=== PATIENT | male | born 1950 | race Caucasian/White ===

== ENCOUNTER → 2016-09-06 | Outpatient (CLI) | payer OTHER ==
[~2016-09-06] VITALS: Ht 177.8 cm; Wt 117.9 kg
[~2016-09-06] MED LIST: ACETAMINOPHEN325 M1 PO; ALEVE220 MG PO; APAP/CODEINE ELI5 M1 OR; CIPROFLOXACIN500 M1 PO; EXCEDRIN CAPLE1 EACH PO; FLAGYL500 MG PO; HYDROCODONE-APA1 TA1 PO; LEVAQUIN 500 M500 M2 PO; NOHOMEMEDICATIONS; ZPAK PO
--- NOTE | ~2016-09-06 | HPC ---
[facility] [place] [address] PAIN MANAGEMENT CONSULTATION Name: LINCOLN MEDINA Room #: REG Selin Corey.#: [id number] Admission: 09/06/16 Attend Phys: Nelson Mills MD Discharge: Date of : 52 Report #: [id number] THIS REPORT FOR: //name// CC: Nelson Mckee MD DATE OF SERVICE: 09/06/2016 FOLLOWUP COMPLAINT: Continued pain, radiating down into the back, legs with numbness, weakness, tenderness, and numbness down into the right foot. FOLLOWUP HISTORY: The patient is a 66-year-old gentleman, who has been referred to the pain clinic for evaluation. The patient has low back pain with numbness and weakness, radiating down into his left and right leg, as well as numbness in his right foot. He has been walking with an antalgic gait because of the pain and discomfort. He has tried stretching exercises, has used nonsteroidal anti-inflammatory medications and has tried hydrocodone. Still his pain is rated as a 10/10. CURRENT MEDICATIONS: 1. Hydrocodone 10/325 q. 6 hours p.r.n. pain. 2. Viagra 100 mg daily. SOCIAL HISTORY: He continues to smoke 1-pack of cigarettes per day and has smoked for 40 years. PHYSICAL EXAMINATION: Blood pressure is 140/77, pulse 79, respiratory rate 20, and room air saturation is 90%. The patient walks with an antalgic gait, complains of pain and discomfort down into his legs, posterior portion of the L5-S1 distribution bilaterally. There is numbness in his right foot. IMPRESSION: 1. Symptomatic lumbar radiculopathy. 2. Displacement of lumbar intervertebral disk with radiculopathy. 3. Transsacral spondylosis with radiculopathy. 4. Chronic intractable pain. RECOMMENDATIONS: We discussed treatment options with the patient. Risks and benefits of an epidural steroid injection were discussed. Complications could include, but are not limited to bleeding, increased muscle soreness, headache, worsening of pain. The patient elects to proceed. PROCEDURE NOTE: The patient was placed on the fluoroscopy table in a prone position. His back was sterilely prepped with a Betadine solution. A total of 5 mL was infiltrated into the L5-S1 area. An 18-gauge [place] [address] PAIN MANAGEMENT CONSULTATION Name: LINCOLN MEDINA Room #: REG NAVEEN Solares#: [id number] Admission: 09/06/16 Attend Phys: Nelson Mills MD Discharge: Date of : 51 Report #: [id number] advanced into the appropriate place after the epidural space was entered. A total of 80 mg Depo-Medrol, 40 mg triamcinolone and 2 mL of 0.25% bupivacaine was injected. The patient tolerated the procedure well. Fluoroscopy time was 8 seconds. The patient will follow up in the near future. We would like to thank you for letting us participate in his care. We hope he continues to improve. <ELECTRONICALLY SIGNED> By: Nelson Mills MD 09/08/16 0853 [id number] Nelson Mills MD /nt
[2016-09-06 09:15] VITALS: BP 140/77
== END ==
LOC: PAIN 07:37
DX: M47.27 Other spondylosis with radiculopathy, lumbosacral region (principal); G89.29 Other chronic pain; F17.210 Nicotine dependence, cigarettes, uncomplicated

== ENCOUNTER → 2016-09-20 | Outpatient (CLI) | payer OTHER ==
[~2016-09-20] VITALS: Ht 177.8 cm; Wt 117.2 kg
[~2016-09-20] MED LIST changes: +NEURONTIN600 MG PO
--- NOTE | ~2016-09-20 | HPC ---
[facility] [place] [address] PAIN MANAGEMENT CONSULTATION Name: LINCOLN MEDINA Room #: REG CLSelin Corey.#: [id number] Admission: 09/20/16 Attend Phys: Nelson Mills MD Discharge: Date of : 51 Report #: [id number] THIS REPORT FOR: //name// CC: Nelson Mckee MD DATE OF SERVICE: 09/20/2016 FOLLOWUP COMPLAINT: The pain is still present. FOLLOWUP HISTORY: The patient is a 66-year-old gentleman who has been seen in the pain clinic because of lumbar radiculopathy. He has symptomatic lumbar radiculopathy. He underwent an epidural steroid injection. He feels that his pain has not improved significantly. He is scheduling surgery in the near future. He does not feel that another epidural steroid injection would prove significantly beneficial at this juncture and would like to await surgery for the definitive treatment. PHYSICAL EXAMINATION: Blood pressure 158/102, pulse 73, respiratory rate 18, room air saturation 96%. The patient's height 5 feet 10 inches, weight 117 kilograms, BMI is 37. The patient continues to have pain and discomfort in the lower portion of his back with pain radiating down in the right L5-S1 distribution. IMPRESSION: 1. Symptomatic lumbar radiculopathy. 2. Displacement of lumbar intervertebral disk with radiculopathy. 3. Transsacral spondylosis with radiculopathy. 4. Chronic intractable pain. RECOMMENDATIONS: The patient will continue with his current medical regimen of gabapentin 600 mg 1 p.o. b.i.d. He will follow up with his surgeon. The patient states that he will probably undergo surgery here in the next week or two. We would like to thank you for letting us participate in his care. We hope he continues to improve. By: 1448 2150 Nelson Mills MD /nt
[2016-09-20 08:32] VITALS: BP 158/102
== END | disposition home or self-care (01) ==
LOC: PAIN 06:55
DX: M51.16 Intervertebral disc disorders with radiculopathy, lumbar region (principal); M47.28 Other spondylosis with radiculopathy, sacral and sacrococcygeal region; G89.29 Other chronic pain; F17.210 Nicotine dependence, cigarettes, uncomplicated

== ENCOUNTER → 2019-10-01 | Outpatient (CLI) | payer OTHER | LOC: HYPER 08:28 | DX: L84 Corns and callosities (principal); R60.0 Localized edema; L30.9 Dermatitis, unspecified; L82.1 Other seborrheic keratosis; B19.10 Unspecified viral hepatitis B without hepatic coma; D75.1 Secondary polycythemia; E66.01 Morbid (severe) obesity due to excess calories; I87.2 Venous insufficiency (chronic) (peripheral); J44.9 Chronic obstructive pulmonary disease, unspecified; M25.473 Effusion, unspecified ankle; F10.10 Alcohol abuse, uncomplicated; F17.290 Nicotine dependence, other tobacco product, uncomplicated; Z68.41 Body mass index [BMI] 40.0-44.9, adult; Z96.60 Presence of unspecified orthopedic joint implant; Z79.82 Long term (current) use of aspirin; Z20.828 Contact with and (suspected) exposure to other viral communicable diseases ==

== ENCOUNTER → 2019-10-06 | Outpatient (CLI) | payer OTHER | LOC: SJCVCIMAG 09:23 | DX: I87.2 Venous insufficiency (chronic) (peripheral) (principal) ==

== ENCOUNTER → 2019-10-08 | Outpatient (CLI) | payer OTHER | LOC: HYPER 08:35 | DX: L30.9 Dermatitis, unspecified (principal); L82.1 Other seborrheic keratosis; R60.0 Localized edema; I87.2 Venous insufficiency (chronic) (peripheral); I89.0 Lymphedema, not elsewhere classified; D75.1 Secondary polycythemia; B19.10 Unspecified viral hepatitis B without hepatic coma; J44.9 Chronic obstructive pulmonary disease, unspecified; M25.473 Effusion, unspecified ankle; F17.210 Nicotine dependence, cigarettes, uncomplicated; E66.9 Obesity, unspecified; H35.00 Unspecified background retinopathy; Z20.828 Contact with and (suspected) exposure to other viral communicable diseases; Z96.60 Presence of unspecified orthopedic joint implant ==

== ENCOUNTER 2020-12-18 16:00 | Emergency (ER) | payer OTHER ==
[~2020-12-18] VITALS: Ht 180.3 cm; Wt 124.7 kg
[2020-12-18] MEDS ORDERED: FUROSEMIDE 40 M40 M1 PO (16:15)
[2020-12-18] MEDS ORDERED: DILTIAZEM 24HR240 M1 PO (16:16)
[2020-12-18] MEDS ORDERED: CEPHALEXIN500 MG PO (18:05)
[2020-12-18 18:10] VITALS: BP 136/80
== END 2020-12-18 18:10 | disposition home or self-care (01) ==
LOC: ER 16:00
DX: S81.821A Laceration with foreign body, right lower leg, initial encounter (principal); Z98.890 Other specified postprocedural states; Z79.891 Long term (current) use of opiate analgesic; Z79.899 Other long term (current) drug therapy; Z87.891 Personal history of nicotine dependence; W22.8XXA Striking against or struck by other objects, initial encounter; Y93.55 Activity, bike riding; Y92.89 Other specified places as the place of occurrence of the external cause; Y99.8 Other external cause status

== ENCOUNTER 2021-05-03 11:41 | Inpatient (IN) | payer OTHER ==
[~2021-05-03] VITALS: Ht 177.8 cm; Wt 109.8 kg
[2021-05-03] VITALS (33 sets, daily range): BP systolic 71–115; BP diastolic 44–80
--- NOTE | ~2021-05-03 | EMS ---
[place] [address] EMS Patient Care Report Name: LINCOLN MEDINA Room #: 242-P ADM IN M.R.#: [id number] Admission: 05/03/21 Attend Phys: Skyla Bradfodr Discharge: Date of : 51 Report #: [id number] THIS REPORT FOR: //name// Report Transmitted: 05/05/2021 13:13 EMS Care Summary [place], [place]/[facility] Incident [id number] @ 05/03/2021 11:04 Incident Location [address] [place] [address] Patient LINCOLN MEDINA Male, 70 Years 1950 Patient Address [address] [place] [address] Patient History Congestive Heart Failure (CHF), Patient Allergies No known allergies, Patient Medications Spironolactone, Trazodone, Tamsulosin, Metoprolol, Bumetanide, Chief Complaint CHF, SOA Disposition Transported No Lights/[place], Upgraded Dispatch Reason Cardiac Arrest/ Transported To [facility] Narrative 70 y/o male CHF SOA Upon arrival there were neighbors and Fire personnel standing outside the residence trying to gain access to the residence. The [place] [address] EMS Patient Care Report Name: LINCOLN MEDINA Room #: 242-P ADM IN M.R.#: [id number] Admission: 05/03/21 Attend Phys: Skyla Bradford Discharge: Date of : 52 Report #: [id number] be opened by the upon her arrival. The family [place] Jennifer had to be put away. The pt found lying supine on the floor of the residence in the hallway. The pt was blue and breathing. He was awake, conscious A&O x 3 with a GCS of 14. Pt has the year wrong and believes it to be 2000. The pt breathing was labored, lung sounds have rales bilaterally, and strong reg radial pulse. The pt is suppose to be on O2 at home 4 lpm and was not wearing his O2. The pt was sat up and assisted to a standing position. The pt was sat on the bed of the closest room to put some underwear on the pt. The pt was placed on O2 at 15 lpm via NRB. The pt had a syncopal episode in the bedroom, he regained consciousness and was assisted to the cot, placed in a position of comfort, secured to the cot and loaded into the ambulance. VS established, ECG is ST, [address] with no ST elevation, a CPAP was placed on the pt at 10 lpm at a pressure of 10. 0.4 mg of sublingual nitro was administered to the pt. The pt was transported with lights and sirens. Despite the pt's low O2 sat he was answering questions appropriately and made the statement that is was his time and I responded no it wasn't. The pt's cot came lose from the yan while in motion to [place]. IV access was delayed due to the cot not latching and moving about the cabin. I had to hold the pt in placed till we arrived at [place]. Report was given after we stopped at the [place] bay it was brief and to the point. EMS extended to the appropriate length to get it out of the ambulance. Pt was taken to bed 2 and lifted onto the bed of the ED. EMS gave report and returned to service. Initial Vitals @11:23P: 106,SpO2: 81, @11:28P: 115,SpO2: 82, @11:28P: 113,BP: 122/83,SpO2: 87, @11:33P: 113,BP: 105/61,CO: 0,SpO2: 81, @11:28P: 114,CO: 3,SpO2: 93, @11:25P: 117,R: 20,Pain: 0/10,GCS: 15,SpO2: 67,CA Suspected: false @11:25P: 118,R: 20,BP: 126/77,Pain: 0/10,GCS: 15,SpO2: 90,Revised Trauma: 12, @11:24P: 128,R: 20,Pain: 0/10,GCS: 15,SpO2: 71,CA Suspected: false Assessments @12:02MENTAL:Person Oriented,Event Oriented,Place Oriented,Time Oriented,SKIN:Cyanotic,Pale,HEENT:Eyes: Left Pupil: 6-mm,Eyes: Right Pupil: 3-mm,Head/Face: No Abnormalities,Neck/Airway: No Abnormalities,LUNG SOUNDS:General: No Abnormalities,ABDOMEN:General: No Abnormalities,PELVIS//GI:No Abnormalities,EXTREMITIES:Capillary Refill: Right Upper: < 2 Sec,Capillary Refill: Left Upper: < 2 Sec,Left Arm: No Abnormalities,Right Arm: No Abnormalities,Left Leg: No Abnormalities,Right Leg: No Abnormalities,PULSE:Radial: 2+ Normal,NEURO:No Abnormalities, Impression Congestive heart failure (CHF) [facility] [address] [address] EMS Patient Care Report Name: LINCOLN MEDINA Room #: 242-P ADM IN M.R.#: [id number] Admission: 05/03/21 Attend Phys: John Paulraheem Calin Sanchez Discharge: Date of : 52 Report #: [id number] Procedures @11:25 12-Lead ECG @11:28 Nitrostat - 0.4 Milligrams (mg) - Sublingual Response: Worse @11:08 ALS Assessment Response: WorseSucceeded @11:24 3-Lead ECG Response: WorseSucceeded @11:24 CPAP FlowRate: 10 Response: WorseSucceeded @11:09 Oxygen FlowRate: 15 Device: Non Re-breather Mask (NRB) Response: UnchangedSucceeded Timeline 11:03,Call Received 11:03,Dispatch Notified 11:04,Dispatched 11:05,En Route 11:07,On Scene 11:08,At Patient 11:08,ALS Assessment,Response: WorseSucceeded, 11:09,Oxygen FlowRate: 15 Device: Non Re-breather Mask (NRB) Response: UnchangedSucceeded, 11:23,BP: / M,PULSE: 106,RR: R,SPO2: 81 Ox,ETCO2: ,BG: ,PAIN: ,GCS: , 11:24,3-Lead ECG,Response: WorseSucceeded, 11:24,CPAP FlowRate: 10 Response: WorseSucceeded, 11:24,BP: / M,PULSE: 128,RR: 20 R,SPO2: 71 Ox,ETCO2: ,BG: ,PAIN: 0,GCS: 15, 11:25,12-Lead ECG, 11:25,BP: / M,PULSE: 117,RR: 20 R,SPO2: 67 Ox,ETCO2: ,BG: ,PAIN: 0,GCS: 15, 11:25,BP: 126/77 M,PULSE: 118,RR: 20 R,SPO2: 90 Ox,ETCO2: ,BG: ,PAIN: 0,GCS: 15, 11:28,Nitrostat - 0.4 Milligrams (mg) - Sublingual,Response: Worse 11:28,BP: / M,PULSE: 114,RR: R,SPO2: 93 Ox,ETCO2: ,BG: ,PAIN: ,GCS: , 11:28,BP: 122/83 M,PULSE: 113,RR: R,SPO2: 87 Ox,ETCO2: ,BG: ,PAIN: ,GCS: , 11:28,BP: / M,PULSE: 115,RR: R,SPO2: 82 Ox,ETCO2: ,BG: ,PAIN: ,GCS: , 11:29,Depart Scene 11:33,BP: 105/61 M,PULSE: 113,RR: R,SPO2: 81 Ox,ETCO2: ,BG: ,PAIN: ,GCS: , 11:33,At Destination 12:06,Call Closed Disclaimer v1.1 Copyright 2020 [employer] This EMS Care Summary contains data elements from the applicable legal record (which may be displayed differently). It is designed to provide pertinent information for the following purposes: continuity of care, clinical quality, and state data reporting. The complete legal record is available to ED staff and administrators of the receiving hospital in [employer] Patient Tracker. All data is provided "as is."
--- NOTE | ~2021-05-03 | EMS ---
[address] [address] EMS Patient Care Report Name: LINCOLN MEDINA Room #: 242-P ADM IN M.R.#: [id number] Admission: 05/03/21 Attend Phys: Skyla Bradford Discharge: Date of : 52 Report #: [id number] THIS REPORT FOR: //name// Report Transmitted: 05/04/2021 10:06 EMS Care Summary [place], [place]/[facility] Incident [id number] @ 05/03/2021 11:04 Incident Location [address] [place] [address] Patient LINCOLN MEDINA Male, 70 Years 1950 Patient Address [address] [place] [address] Patient History Congestive Heart Failure (CHF), Patient Allergies No known allergies, Patient Medications Tamsulosin, Metoprolol, Bumetanide, Trazodone, Spironolactone, Chief Complaint CHF, SOA Disposition Transported No Lights/[place], Upgraded Dispatch Reason Cardiac Arrest/ Transported To [facility] Narrative 70 y/o male CHF SOA Upon arrival there were neighbors and Fire personnel standing outside the residence trying to gain access to the residence. [place] [address] EMS Patient Care Report Name: LINCOLN MEDINA Room #: 242-P ADM IN M.R.#: [id number] Admission: 05/03/21 Attend Phys: Skyla Bradford Discharge: Date of : 52 Report #: [id number] be opened by the upon her arrival. The family Swedish Jennifer had to be put away. The pt found lying supine on the floor of the residence in the hallway. The pt was blue and breathing. He was awake, conscious A&O x 3 with a GCS of 14. Pt has the year wrong and believes it to be 2000. The pt breathing was labored, lung sounds have rales bilaterally, and strong reg radial pulse. The pt is suppose to be on O2 at home 4 lpm and was not wearing his O2. The pt was sat up and assisted to a standing position. The pt was sat on the bed of the closest room to put some underwear on the pt. The pt was placed on O2 at 15 lpm via NRB. The pt had a syncopal episode in the bedroom, he regained consciousness and was assisted to the cot, placed in a position of comfort, secured to the cot and loaded into the ambulance. VS established, ECG is ST, [address] with no ST elevation, a CPAP was placed on the pt at 10 lpm at a pressure of 10. 0.4 mg of sublingual nitro was administered to the pt. The pt was transported with lights and sirens. Despite the pt's low O2 sat he was answering questions appropriately and made the statement that is was his time and I responded no it wasn't. The pt's cot came lose from the yan while in motion to [place]. IV access was delayed due to the cot not latching and moving about the cabin. I had to hold the pt in placed till we arrived at [place]. Report was given after we stopped at the [place] bay it was brief and to the point. EMS extended to the appropriate length to get it out of the ambulance. Pt was taken to bed 2 and lifted onto the bed of the ED. EMS gave report and returned to service. Initial Vitals @11:23P: 106,SpO2: 81, @11:28P: 115,SpO2: 82, @11:28P: 113,BP: 122/83,SpO2: 87, @11:33P: 113,BP: 105/61,CO: 0,SpO2: 81, @11:28P: 114,CO: 3,SpO2: 93, @11:25P: 117,R: 20,Pain: 0/10,GCS: 15,SpO2: 67,RI Suspected: false @11:25P: 118,R: 20,BP: 126/77,Pain: 0/10,GCS: 15,SpO2: 90,Revised Trauma: 12, @11:24P: 128,R: 20,Pain: 0/10,GCS: 15,SpO2: 71,RI Suspected: false Assessments @12:02MENTAL:Time Oriented,Place Oriented,Event Oriented,Person Oriented,SKIN:Pale,Cyanotic,HEENT:Eyes: Right Pupil: 3-mm,Eyes: Left Pupil: 6-mm,Head/Face: No Abnormalities,Neck/Airway: No Abnormalities,LUNG SOUNDS:General: No Abnormalities,ABDOMEN:General: No Abnormalities,PELVIS//GI:No Abnormalities,EXTREMITIES:Capillary Refill: Right Upper: < 2 Sec,Capillary Refill: Left Upper: < 2 Sec,Left Arm: No Abnormalities,Right Arm: No Abnormalities,Left Leg: No Abnormalities,Right Leg: No Abnormalities,PULSE:Radial: 2+ Normal,NEURO:No Abnormalities, Impression Congestive heart failure (CHF) [facility] [address] [place] [address] EMS Patient Care Report Name: LINCOLN MEDINA Room #: 242-P ADM IN M.R.#: [id number] Admission: 05/03/21 Attend Phys: John Paulraheem Calin Sanchez Discharge: Date of : 52 Report #: [id number] Procedures @11:25 12-Lead ECG @11:28 Nitrostat - 0.4 Milligrams (mg) - Sublingual Response: Worse @11:08 ALS Assessment Response: WorseSucceeded @11:24 3-Lead ECG Response: WorseSucceeded @11:24 CPAP FlowRate: 10 Response: WorseSucceeded @11:09 Oxygen FlowRate: 15 Device: Non Re-breather Mask (NRB) Response: UnchangedSucceeded Timeline 11:03,Call Received 11:03,Dispatch Notified 11:04,Dispatched 11:05,En Route 11:07,On Scene 11:08,At Patient 11:08,ALS Assessment,Response: WorseSucceeded, 11:09,Oxygen FlowRate: 15 Device: Non Re-breather Mask (NRB) Response: UnchangedSucceeded, 11:23,BP: / M,PULSE: 106,RR: R,SPO2: 81 Ox,ETCO2: ,BG: ,PAIN: ,GCS: , 11:24,3-Lead ECG,Response: WorseSucceeded, 11:24,CPAP FlowRate: 10 Response: WorseSucceeded, 11:24,BP: / M,PULSE: 128,RR: 20 R,SPO2: 71 Ox,ETCO2: ,BG: ,PAIN: 0,GCS: 15, 11:25,12-Lead ECG, 11:25,BP: / M,PULSE: 117,RR: 20 R,SPO2: 67 Ox,ETCO2: ,BG: ,PAIN: 0,GCS: 15, 11:25,BP: 126/77 M,PULSE: 118,RR: 20 R,SPO2: 90 Ox,ETCO2: ,BG: ,PAIN: 0,GCS: 15, 11:28,Nitrostat - 0.4 Milligrams (mg) - Sublingual,Response: Worse 11:28,BP: / M,PULSE: 114,RR: R,SPO2: 93 Ox,ETCO2: ,BG: ,PAIN: ,GCS: , 11:28,BP: 122/83 M,PULSE: 113,RR: R,SPO2: 87 Ox,ETCO2: ,BG: ,PAIN: ,GCS: , 11:28,BP: / M,PULSE: 115,RR: R,SPO2: 82 Ox,ETCO2: ,BG: ,PAIN: ,GCS: , 11:29,Depart Scene 11:33,BP: 105/61 M,PULSE: 113,RR: R,SPO2: 81 Ox,ETCO2: ,BG: ,PAIN: ,GCS: , 11:33,At Destination 12:06,Call Closed Disclaimer v1.1 Copyright 2020 [employer] This EMS Care Summary contains data elements from the applicable legal record (which may be displayed differently). It is designed to provide pertinent information for the following purposes: continuity of care, clinical quality, and state data reporting. The complete legal record is available to ED staff and administrators of the receiving hospital in [employer]'s Patient Tracker. All data is provided "as is."
[~2021-05-03 11:41] MED LIST changes: +CEPHALEXIN500 MG PO; +DILTIAZEM 24HR240 M1 PO; +FUROSEMIDE 40 M40 M1 PO
--- NOTE | 2021-05-03 11:51 | NUR ---
PATIENT INTUBED AT BEDSIDE BY ERP: 200 ETOMIDATE, 100 SUCC @ 1148, 7.5 ET TUBE, 23@LIP @ 1149
[2021-05-03 12:17] LABS: ABSOLUTE NEUTROPHILS 5.7 thou/uL (1.4-8.2); BASOPHILS 0.3 % (0.0-2.0); HEMATOCRIT 56.6 % (42.0-52.0); HEMOGLOBIN 17.9 gm/dL (14.0-18.0); LYMPHOCYTES 7.5 % (24.0-44.0); MCH 28.8 pg (26.0-34.0); MCHC 31.6 g/dL (28.0-37.0); MCV 91.1 fL (80.0-100.0); MONOCYTES 8.6 % (1.0-8.0); PLATELET COUNT 181 thou/uL (150-400); POLYS 83.6 % (36.0-66.0); RBC 6.21 mil/uL (4.50-6.00); RDW 14.3 % (10.5-14.5); WBC 6.8 thou/uL (4.0-11.0)
--- NOTE | 2021-05-03 12:19 | NUR ---
PT VENTILATOR SETTINGS: TIDAL VOLUME: 500 RESPIRATORY RATE: 16 PEEP: 6 FIO2: 100% LUNG SOUNDS HEAR EQUALL IN BOTH CROCKER. PT HAS SIGNIGICANT CONGESTION AND THEIR IS HEAVY SPUTUM EXTRACTED FROM ET TUBE WITH SUCTION.
[2021-05-03 12:20] LABS: CALCIUM 8.1 mg/dL (8.5-10.1); CREATININE 2.3 mg/dL (0.7-1.3); POTASSIUM 4.8 mmol/L (3.5-5.1)
[2021-05-03 12:30] LABS: ALBUMIN 3.5 g/dL (3.4-5.0); TOTAL BILIRUBIN 0.8 mg/dL (0.2-1.0); TOTAL PROTEIN 7.1 g/dL (6.4-8.2)
[2021-05-03 12:55] LABS: BE(vivo) -1.3 mmol/L (-2 to +3); HCO3 31.5 mmol/L (22.0-26.0); PO2 70.3 mmHg (80.0-100.0); sO2 88.3 % (92.0-98.0)
[2021-05-03 12:56] LABS: PCO2 89.7 mmHg (35.0-45.0); pH 7.164 (7.360-7.450)
--- NOTE | 2021-05-03 13:34 | NUR ---
PT LEVOPHED AND PROPOFOL BOTH STOPPED AT THIS TIME PER ADMITTING PHYSICIANS ORDER.
--- NOTE | 2021-05-03 14:02 | EKG ---
[place] [address] [facility] [address] ELECTROCARDIOGRAM REPORT Name: EVELYNEPRISCILLALINCOLN ANDRÉS Room #: 170-2 ADM IN M.R.#: [id number] Admission: 05/03/21 Attend Phys: Skyla Bradford Discharge: Date of : 51 Report #: [id number] [facility] ED Test Date: 2021-05-03 Test Time: 11:40:35 Pat Name: LINCOLN MEDINA Department: Room: 170 Gender: M Distance [employer] Faculty Liaison: NMD : 1950 Requested By: Lg Hernandez Order Number: [id number] MD: Gerber Monahan Measurements Intervals [place] Rate: 110 P: 64 ME: 170 QRS: 123 QRSD: 94 T: 48 QT: 335 QTc: 454 Interpretive Statements Sinus tachycardia Probable left atrial enlargement Left posterior fascicular block No previous ECG available for comparison Electronically Signed On 05-03-2021 14:01:42 BROACH OPERATOR by Gerber Monahan [email or web address] <ELECTRONICALLY SIGNED> By: Gerber Monahan MD, [facility] 05/03/21 1401 1140 1140 Gerber Monahan MD, FACC /EPI
--- NOTE | 2021-05-03 15:03 | NUR ---
A #5F TRIPLE LUMEN CENTRAL LINE WAS PLACED PER HOSPITAL POLICY AFTER A BEDSIDE TIMEOUT WAS COMPLETED. THE LINE WAS TRIMMED TO 25CM AND ADVANCED TO 6CM EXTERNAL. A STAT CHEST XRAY WAS ORDERED TO CONFIRM LINE WAS IN ADEQUATE POSITION FOR USE
--- NOTE | 2021-05-03 17:00 | NUR ---
1630- Patient arrived to ICU with assist of ED staff and RT. He was quickly placed on ventilator. Admission assessment performed and noted. His blood pressure was hypotensive, levophed infusing. Levophed titrated to desired goal. He was restless, propofol titrated. No family present upon arrival to ICU.
[2021-05-03 20:59] LABS: BE(vivo) 2.8 mmol/L (-2 to +3); HCO3 30.7 mmol/L (22.0-26.0); PCO2 58.6 mmHg (35.0-45.0); PO2 92.3 mmHg (80.0-100.0); pH 7.337 (7.360-7.450); sO2 96.5 % (92.0-98.0)
[2021-05-04] VITALS (40 sets, daily range): BP systolic 92–135; BP diastolic 61–86
[2021-05-04 04:03] LABS: HEMOGLOBIN 16.6 gm/dL (14.0-18.0); MCH 28.3 pg (26.0-34.0); MCHC 31.3 g/dL (28.0-37.0); MCV 90.4 fL (80.0-100.0); RBC 5.86 mil/uL (4.50-6.00); RDW 14.4 % (10.5-14.5); WBC 7.4 thou/uL (4.0-11.0)
[2021-05-04 04:09] LABS: CALCIUM 7.9 mg/dL (8.5-10.1); POTASSIUM 4.5 mmol/L (3.5-5.1)
[2021-05-04 04:15] LABS: ALBUMIN 2.7 g/dL (3.4-5.0); MAGNESIUM 1.8 mg/dL (1.8-2.4); TOTAL BILIRUBIN 0.6 mg/dL (0.2-1.0); TOTAL PROTEIN 5.7 g/dL (6.4-8.2)
[2021-05-04 04:19] LABS: CREATININE 1.3 mg/dL (0.7-1.3)
[2021-05-04 05:22] LABS: BE(vivo) 5.5 mmol/L (-2 to +3); HCO3 32.9 mmol/L (22.0-26.0); PCO2 57.9 mmHg (35.0-45.0); PO2 86.3 mmHg (80.0-100.0); pH 7.373 (7.360-7.450); sO2 96.1 % (92.0-98.0)
--- NOTE | 2021-05-04 11:08 | 2DMMODE ---
[facility] [place] [address] 2 D/M-MODE ECHOCARDIOGRAM Name: LINCOLN MEDINA Room #: 242-P ADM IN M.R.#: [id number] Admission: 05/03/21 Attend Phys: Skyla Bradford Discharge: Date of : 52 Report #: [id number] THIS REPORT FOR: cc: Herberth Morrison,Gerber Ashraf MD [facility] ~ APPROVED REPORT Study performed: 05/04/2021 09:51:45 EXAM: Comprehensive 2D, Doppler, and color-flow Echocardiogram Patient Location: ICU Room #: 242 Status: routine BSA: 2.33 HR: 70 bpm BP: 104/71 mmHg Rhythm: NSR Other Information Study Quality: Good Indications Congestive Heart Failure Respiratory failure 2D Dimensions RVDd: 52.99 mm IVSd: 10.35 (7-11mm) LVOT Diam: 21.97 (18-24mm) LVDd: 51.19 mm PWd: 11.16 (7-11mm) Ascending Ao: 33.71 (22-36mm) LVDs: 36.59 (25-40mm) Left Atrium: 37.04 (27-40mm) Aortic Root: 31.69 mm IVC: 26.00 mm Volumes Left Atrial Volume (Systole) Single Plane 4CH: 44.70 mL Single Plane 2CH: 41.35 mL LA ESV Index: 23.00 mL/m2 Aortic Valve AoV Peak Eron.: 1.14 m/s AO Peak Gr.: 5.24 mmHg LVOT Max P.03 mmHg LVOT Max V: 0.87 m/s [facility] [address] [email or web address] [address] 2 D/M-MODE ECHOCARDIOGRAM Name: LINCOLN MEDINA Room #: 242-P [facility] IN ..#: [id number] Admission: 05/03/21 Attend Phys: Skyla Layton Jul Discharge: Date of : 52 Report #: [id number] MASOOD Vmax: 2.88 cm2 Mitral Valve E/A Ratio: 0.8 MV Decel. Time: 240.60 ms MV E Max Eron.: 0.56 m/s MV A Eron.: 0.74 m/s MV PHT: 69.77 ms IVRT: 138.41 ms Pulmonary Valve PV Peak Eron.: 0.73 m/s PV Peak Gr.: 2.11 mmHg Pulmonary Vein P Vein S: 0.27 m/s P Vein A: 0.24 m/s P Vein D: 0.26 m/s P Vein A Dur.: 120.0 msec P Vein S/D Ratio: 1.04 Tricuspid Valve TR Peak Eron.: 3.77 m/s TR Peak Gr.: 56.93 mmHg PA Pressure: 72.00 mmHg Left Ventricle The left ventricle is normal size. There is normal LV segmental wall motion. There is normal left ventricular wall thickness. The left ventricular systolic function is normal. The left ventricular ejection fraction is within the normal range. LVEF is >55%. Grade I - abnormal relaxation pattern. Right Ventricle Right ventricle is dilated. Right ventricle is hypokinetic. Atria The left atrium size is normal. Right atrium is dilated. Aortic Valve The aortic valve is normal in structure. No aortic regurgitation is present. There is no aortic valvular stenosis. Mitral Valve The mitral valve is normal in structure. There is no mitral valve regurgitation noted. No evidence of mitral valve stenosis. Tricuspid Valve [facility] [email or web address] [address] 2 D/M-MODE ECHOCARDIOGRAM Name: LINCOLN MEDINA Room #: 242-P [facility] IN M.R.#: [id number] Admission: 05/03/21 Attend Phys: Skyla Dewey Discharge: Date of : 52 Report #: [id number] The tricuspid valve is normal in structure. There is moderate tricuspid regurgitation. There is severe pulmonary hypertension. 72 mmHg Pulmonic Valve The pulmonary valve is normal in structure. There is no pulmonic valvular regurgitation. Great Vessels The aortic root is normal in size. The inferior vena cava is dilated with no inspiratory collapse. Pericardium There is no pericardial effusion. <Conclusion> Normal left ventricle size/wall thickness Ejection fraction 55% Grade 1 diastolic dysfunction Right ventricle mildly dilated/hypokinetic Normal atrial size Normal aortic/mitral valve structure and function Moderate tricuspid valve insufficiency Severe pulmonary hypertension Pulmonary systolic pressure estimated 72 mmHg Normal aortic root size No pericardial effusion <ELECTRONICALLY SIGNED> By: Gerber Monahan MD, FACC 05/04/211107 07 07 Gerber Monahan MD, FACC /INF
[2021-05-04 12:25] LABS: URINE BILIRUBIN NEGATIVE (Negative); URINE BLOOD NEGATIVE (Negative); URINE CLARITY CLOUDY; URINE COLOR YELLOW; URINE GLUCOSE-RANDOM* NEGATIVE (Negative); URINE KETONES NEGATIVE (Negative); URINE LEUKOCYTES-REFLEX NEGATIVE (Negative); URINE NITRITE-REFLEX NEGATIVE (Negative); URINE PROTEIN (DIPSTICK) NEGATIVE (Negative); URINE SPECIFIC GRAVITY 1.025 (1.005-1.035); URINE UROBILINOGEN 0.2 E.U./dl (0.2-1.0)
--- NOTE | 2021-05-05 11:03 | NUR ---
ASSUMED CARE OF PT AT 0700 SPOKE TO PTS SISTER AT 0830 AND UPDATED HER PER POC AT BEDSIDE AT 1030, ANSWERED ALL HER QUESTIONS PER POC
--- NOTE | 2021-05-05 15:44 | NUR ---
70 year old male remains intubated for respiratory arrest, Acute hypoxic hypoxia, hypercapnic respiratory failure, obesity, AMINA, COPD, Hx of CHF, sever pulmonary hypertension, UTI and cirrhosis. At present patient remains intubated at 70% FI02. Patient's sister updated by nursing and is at bedside. No anticipated CM needs at this time. CM to follow when moving closer to discharge needs being identified.
[2021-05-05 18:00] VITALS: BP 121/70
[2021-05-05 19:00] VITALS: BP 118/68
[2021-05-05 20:00] VITALS: BP 129/73
[2021-05-05 21:00] VITALS: BP 130/73
[2021-05-05 22:00] VITALS: BP 127/73
[2021-05-05 23:00] VITALS: BP 132/74
[2021-05-06] VITALS (39 sets, daily range): BP systolic 110–151; BP diastolic 63–87
[2021-05-06 02:54] LABS: ABSOLUTE NEUTROPHILS 8.6 thou/uL (1.4-8.2); BASOPHILS 0.4 % (0.0-2.0); HEMATOCRIT 53.3 % (42.0-52.0); LYMPHOCYTES 6.5 % (24.0-44.0); MCH 28.4 pg (26.0-34.0); MONOCYTES 5.2 % (1.0-8.0); PLATELET COUNT 172 thou/uL (150-400); POLYS 87.9 % (36.0-66.0); RBC 5.99 mil/uL (4.50-6.00); RDW 14.2 % (10.5-14.5); WBC 9.8 thou/uL (4.0-11.0)
[2021-05-06 03:21] LABS: ALBUMIN 2.8 g/dL (3.4-5.0); CALCIUM 8.5 mg/dL (8.5-10.1); CREATININE 0.9 mg/dL (0.7-1.3); PHOSPHORUS 4.6 mg/dL (2.5-4.9); POTASSIUM 4.4 mmol/L (3.5-5.1); TOTAL BILIRUBIN 0.6 mg/dL (0.2-1.0); TOTAL PROTEIN 5.9 g/dL (6.4-8.2)
[2021-05-06 05:20] LABS: BE(vivo) 8.6 mmol/L (-2 to +3); HCO3 36.6 mmol/L (22.0-26.0); PCO2 61.4 mmHg (35.0-45.0); pH 7.393 (7.360-7.450); sO2 94.6 % (92.0-98.0)
--- NOTE | 2021-05-06 15:50 | NUR ---
PT , AMI, AT BEDSIDE THIS MORNING FROM 11AM-1PM. DISCUSSED POC WITH HER, WEANED SEDATION TO ATTEMPT CPAP TRIAL AND EXPLAINED PROCESS. APPEARS ANXIOUS AND VOICES HER WORRY FOR HIS HEALTH. ADVISED THAT THIS RN WOULD CALL HER LATER THIS AFTERNOON WITH UPDATES.
[2021-05-07] VITALS (47 sets, daily range): BP systolic 118–155; BP diastolic 68–84
[2021-05-07 02:52] LABS: CALCIUM 8.5 mg/dL (8.5-10.1); PHOSPHORUS 4.7 mg/dL (2.6-4.7); POTASSIUM 4.5 mmol/L (3.5-5.1)
--- NOTE | 2021-05-07 02:56 | NUR ---
PATIENT WAS CALM AND PEACEFUL THROUGHOUT THE SHIFT. PATIENT DOES RESPON TO TOUCH. PATIENT IS MILDLY SEDATED WITH PRECEDEX AND PROPOFOL. REMAINS INTUBATED AT THIS TIME ABD TOLERATING WELL. TUBE FEEDING IN PLACE TO OG TUBE AT SET RATE OF 40ML/HR. NO S/S OF DISTRESS NOTED AT THIS TIME. MEDICATIONS GIVEN THROUGH OG SITE. PATIENT SINUS STUART ON THE MONITOR. ALL VITAL SIGNS STABLE THROUGH THIS POINT OF SHIFT. WILL CONTINUE TO MONITOR FOR CANGES IN PATIENT STATUS.
--- NOTE | 2021-05-07 06:16 | NUR ---
0545 MOMENTS AFTER RT CLEANED PT OG SITE PATIENT O2 BEGAN TO SLOWLY DROP. PT DROPPED LOW 86%. NO LEAK IDENTIFIED IN TUBING. PERFORMED IN LINE SUCTION WHICH INITIALLY IMPROVED 02 SAT TO 88%. INCREASED FIO2 TO 100% IN ORDER TO HELP PATIENT BREATHE AND ATTEMPT TO SUCTION AGAIN. NOTED SEVERAL THICK SECRETIONS WHEN PERFORMING DEEP SUCTION. PT 02 SAT BACK UP TO 97%. RT WILL KEEP PT ON 100% UNTIL AM ROUNDS TO ALLOW PATIENT TO REGROUP.
[2021-05-08] VITALS (40 sets, daily range): BP systolic 117–161; BP diastolic 62–85
--- NOTE | 2021-05-08 03:50 | NUR ---
05/07/21: 1999: Pt had temp of 102.4 F. Cortney Rosales NP, notified and cultures obtained of urine, sputum and blood (both line and peripheral). Pt blankets removed and fan turned on medium. 05/08/21: 0100: Pt temp up to 102.9 F. Pt given Tylenol 650 mg per OG tube. Recheck of temp at 0145 102.1 F
[2021-05-08 06:17] LABS: HEMATOCRIT 59.1 % (42.0-52.0); HEMOGLOBIN 18.4 gm/dL (14.0-18.0); MCH 27.9 pg (26.0-34.0); MCHC 31.1 g/dL (28.0-37.0); MCV 89.8 fL (80.0-100.0); RBC 6.59 mil/uL (4.50-6.00); RDW 14.6 % (10.5-14.5); WBC 9.2 thou/uL (4.0-11.0)
[2021-05-08 06:25] LABS: ALBUMIN 3.1 g/dL (3.4-5.0); CALCIUM 8.6 mg/dL (8.5-10.1); CREATININE 1.1 mg/dL (0.7-1.3); MAGNESIUM 2.5 mg/dL (1.8-2.4); PHOSPHORUS 4.4 mg/dL (2.6-4.7); POTASSIUM 3.6 mmol/L (3.5-5.1)
--- NOTE | 2021-05-08 12:12 | NUR ---
patient temp 102. Dr. Bradford aware. Blood culture, sputum, and urine done last night and pending. zosyn on board. Continue with tylenol.
--- NOTE | 2021-05-08 14:51 | NUR ---
[facility] MESSAGE PLACED BY DR KEVIN TO HAVE THE ETT ADVANCED BY 3CM. TUBE WAS TAKEN TO 26 @ THE LIP. UPON ADVANCEMENT THE PATIENT HAD COPIUS AMOUNTS OF SECRETIONS THAT CAME UP THRU HIS TUBE. CXR WAS ORDERED FOR VERIFICATION OF PLACEMENT.
[2021-05-09] VITALS (34 sets, daily range): BP systolic 107–135; BP diastolic 62–80
--- NOTE | 2021-05-09 02:54 | NUR ---
PROGRESS PT WITH ET AND OG TUBES IN PLACE VENTILATOR SETTINGS AT 70%FIO2, 6 PEEP, 500 TV. TUBE SECURE RT SUCTIONING AND ASSESSING ORDERED. PT TOLERATING WELL. OG INTACT WITH VITAL HP RUNNING AT 40ML'S/HR TOLERATING WELL. ACCCUCHECKS Q6HR WITH SSI. MONTERO IN PLACE DRAINING MODERATE AMOUNT OF LUIS CLEAR URINE. PRECEDEX INFUSING INTO RIGHT IJ AT 1.4MCG/KG/HR. PT SEDATED BUT RESPONSIVE. HAD A TEMP OF 103.1 AND 650 MG TYLENOL GIVEN TEMP DOWN TO 99.1, ZOSYN CONTINUES. CONTINUE POC.
[2021-05-09 04:17] LABS: HEMATOCRIT 59.4 % (42.0-52.0); HEMOGLOBIN 18.7 gm/dL (14.0-18.0); MCH 28.3 pg (26.0-34.0); MCHC 31.4 g/dL (28.0-37.0); MCV 90.2 fL (80.0-100.0); RBC 6.59 mil/uL (4.50-6.00); RDW 14.8 % (10.5-14.5); WBC 9.5 thou/uL (4.0-11.0)
[2021-05-09 04:20] LABS: CALCIUM 8.4 mg/dL (8.5-10.1)
--- NOTE | 2021-05-09 11:39 | NUR ---
New tube feeding goal is 65ml/hr vital HP. Continue beneprotein packets in water flushes
--- NOTE | 2021-05-09 15:02 | NUR ---
Chart review. Found down at home. Vent support 65%, peep 6. Discussed during los with the attending physician and during unit rounds with pulmonary MD. Elevated temp, ID following. Cm visited with bladimir and spouse kylah at bedside. Bladimir eyes open and nodded to yes and no question. Independent prior to hospital. Lives home with his . Has basement stair where he would go to shower up now he might need to shower upstairs. Manage own medication. Uses home oxygen. Had a home sleep study at home but with his adha he could not keep on mask on so he just uses oxygen at home. 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 No hh or rehab in the past per kylah. Will cont following as needed.
[2021-05-10] VITALS (33 sets, daily range): BP systolic 94–142; BP diastolic 54–78
[2021-05-10 03:28] LABS: HEMATOCRIT 59.4 % (42.0-52.0); HEMOGLOBIN 18.4 gm/dL (14.0-18.0); MCH 28.1 pg (26.0-34.0); MCHC 30.9 g/dL (28.0-37.0); MCV 90.9 fL (80.0-100.0); RBC 6.53 mil/uL (4.50-6.00); WBC 9.4 thou/uL (4.0-11.0)
[2021-05-10 03:52] LABS: ALBUMIN 2.7 g/dL (3.4-5.0); CALCIUM 8.1 mg/dL (8.5-10.1); CREATININE 1.1 mg/dL (0.7-1.3); PHOSPHORUS 4.5 mg/dL (2.5-4.9); POTASSIUM 3.6 mmol/L (3.5-5.1)
--- NOTE | 2021-05-10 12:18 | NUR ---
0900- IN TO SEE.--VW 1130- IN.--VW 1200- AT BEDSIDE. MUCH TIME SPENT W HER.LOTS OF REASSURANCE,RE-EXPLAINING & REINFORCING PT'S PROGRESS/POC.S=HE IS VERY TEARFUL AT THIS TIME.SPIRITUAL CARE CALLED.--VW
[2021-05-10 15:02] LABS: URINE BLOOD TRACE (Negative); URINE CLARITY CLEAR; URINE COLOR YELLOW; URINE GLUCOSE-RANDOM* NEGATIVE (Negative); URINE KETONES NEGATIVE (Negative); URINE LEUKOCYTES-REFLEX NEGATIVE (Negative); URINE NITRITE-REFLEX NEGATIVE (Negative); URINE PROTEIN (DIPSTICK) TRACE (Negative)
[2021-05-10 15:06] LABS: ICTOTEST (BILI CONFIRMATORY) Negative (Negative); URINE BILIRUBIN NEGATIVE (Negative)
[2021-05-10 15:57] LABS: HEMATOCRIT 59.6 % (42.0-52.0); HEMOGLOBIN 18.1 gm/dL (14.0-18.0); MCH 27.5 pg (26.0-34.0); MCHC 30.3 g/dL (28.0-37.0); MCV 90.9 fL (80.0-100.0); PLATELET COUNT 82 thou/uL (150-400); RBC 6.56 mil/uL (4.50-6.00); WBC 12.6 thou/uL (4.0-11.0)
[2021-05-10 16:10] LABS: BASOPHILS 0.9 % (0.0-2.0); EOSINOPHILS 0.2 % (0.0-3.0); LYMPHOCYTES 10.3 % (24.0-44.0); MONOCYTES 9.9 % (1.0-8.0); POLYS 78.7 % (36.0-66.0)
[2021-05-10 16:13] LABS: ABSOLUTE NEUTROPHILS 9.6 thou/uL (1.4-8.2)
[2021-05-10 16:22] LABS: ALBUMIN 2.6 g/dL (3.4-5.0); DIRECT BILIRUBIN 1.1 mg/dL (<0.1-0.2); TOTAL BILIRUBIN 2.7 mg/dL (0.2-1.0); TOTAL PROTEIN 5.7 g/dL (6.4-8.2)
[2021-05-10 16:45] LABS: MACROCYTES SLIGHT; TEARDROPS 1+
[2021-05-10 16:46] LABS: LARGE PLATELETS FEW
--- NOTE | 2021-05-10 20:52 | NUR ---
ASSUMED CARE OF PT AT 1900. DR KEVIN CALLED AT 1919 REGARDING PT RHYTHM. A FLUTTER. DR KEVIN ORDERED HEPARIN GTT TO BE STARTED PER PROTOCOL. RN CALLED DR KEVIN AGAIN AT 2048 TO CONFIRM ORDER AFTER US OF BLE RESULTS WERE SEEN DR KEVIN ONCE MORE CONFIRMED THAT HE WISHES PT TO BE ON HEPARIN GTT PER PROTOCOL. WILL CONTINUE TO MONITOR.
[2021-05-11] VITALS (22 sets, daily range): BP systolic 89–112; BP diastolic 56–76
[2021-05-11 01:06] LABS: GLYCOHEMOGLOBIN (HGB A1C) 7.6 % (4.8-5.6)
[2021-05-11 02:42] LABS: HEMATOCRIT 56.2 % (42.0-52.0); HEMOGLOBIN 17.6 gm/dL (14.0-18.0); MCH 28.4 pg (26.0-34.0); MCHC 31.4 g/dL (28.0-37.0); MCV 90.5 fL (80.0-100.0); RBC 6.21 mil/uL (4.50-6.00); RDW 14.9 % (10.5-14.5); WBC 11.2 thou/uL (4.0-11.0)
[2021-05-11 03:39] LABS: CALCIUM 8.2 mg/dL (8.5-10.1); CREATININE 1.1 mg/dL (0.7-1.3)
--- NOTE | 2021-05-11 07:45 | HC ---
[facility] [place] [address] CONSULTATION Name: LINCOLN MEDINA Room #: 242-P ADM IN M.R.#: [id number] Admission: 05/03/21 Attend Phys: Skyla Bradford Discharge: Date of : 52 Report #: [id number] THIS REPORT FOR: cc: Herberth Morrison,Herberth Hairston,Tre Rivero MD ~ DATE OF SERVICE: 05/10/2021 INFECTIOUS DISEASE CONSULTATION ATTENDING PHYSICIAN: Dr. Bradford. REASON FOR EVALUATION: Nosocomial fevers. HISTORY OF PRESENT ILLNESS: Chart reviewed. The patient examined. This is a 70-year-old gentleman with known history of cardiomyopathy and congestive heart failure, who was admitted through the emergency room, found down. It is not clear if he had a syncopal episode due to clinically deteriorating status. He was placed in Intensive Care Unit. He was intubated, now is maintained on ventilatory support, suggests he may have pneumonitis. He had been undergoing weaning procedures, although this was complicated by mucous plugging. He subsequently developed daily fevers, some of which have been high-grade. Evaluation was undertaken. Sputum culture with growth of upper respiratory tract jessica. Chest x-ray from this morning does show bibasilar infiltrates that are described as improving. White count is in normal range. Urine culture from earlier showed no growth. Blood cultures from the 1st were sterile thus far. He has been on empiric therapy with Zosyn. Vancomycin was added in last 24 hours. It is notable that he is on some sedating medicine; however, does have a temperature pulse dissociation in the low 60s despite of a temperature of 101. Hemodynamically, his blood pressures have been relatively stable. He does arouse. ALLERGIES: None known. CURRENT MEDICATIONS: Include: Metoclopramide, medetomidine, vancomycin just started, famotidine, methylprednisolone, guaifenesin, furosemide, p.r.n. analgesics, antiemetics, Zosyn. PAST MEDICAL HISTORY: Described as a cardiomyopathy with history of congestive heart failure, also noted history of COPD, severe pulmonary hypertension, and cirrhosis. SOCIAL HISTORY: Available in chart. FAMILY HISTORY: Available in chart. [facility] [address] [place] [address] CONSULTATION Name: LINCOLN MEDINA Room #: 242-P [facility] IN M.R.#: [id number] Admission: 05/03/21 Attend Phys: Skyla Bradford Discharge: Date of : 52 Report #: [id number] REVIEW OF SYSTEMS: Not obtainable. PHYSICAL EXAMINATION: GENERAL: He appears quite ill, somewhat restless, moderate distress. VITAL SIGNS: Temperature 101.4 recently, pulse 62, respirations 19, blood pressure 132/73. SKIN: Warm, dry, no rashes. HEENT: Normocephalic. Extraocular muscles intact. He has ET, OG tube in place. Central venous catheter. Noted ventilatory settings of FiO2 of 55%. LUNGS: Bilateral diminished breath sounds. Few scattered crackles at the bases. HEART: Regular. I do not appreciate a murmur. ABDOMEN: Obese, somewhat distended, firm, nontender. EXTREMITIES: No cyanosis. GENITOURINARY AND RECTAL: Deferred. LABORATORY DATA: Sputum cultures described above. Electrolytes: Sodium 140, potassium 3.6, chloride 107, bicarbonate is 30, anion gap of 3, BUN and creatinine 42 and 1.1, glucose of 311. Albumin 2.7. CBC: White count 9.4, H and H 18.4 and 59.4, platelets of 94. Initial CBC showed no evidence of eosinophilia at that point. No recent differential. Blood cultures sterile thus far. Initially, had some mild elevation in liver function tests. ASSESSMENT AND PLAN: Nosocomial fever in a patient who presented and subsequently intubated, has evidence of pneumonitis, has been on broad-spectrum therapy. We will do additional studies including repeat labs, including a sputum culture, blood cultures, additional lab testing. Also, we will adjust antimicrobial therapy. Would be concerned about a drug fever, specifically the Zosyn given the temperature, pulse dissociation. At this point, in spite of his high fevers with clinically deteriorating, although slowly improve as well, we will monitor and continue efforts to wean off support. <ELECTRONICALLY SIGNED> By: Tre Murillo MD 05/11/21 0745 1120 1909 Tre Murillo MD /nt
--- NOTE | 2021-05-11 17:34 | NUR ---
PATIENT SLOWLY PROGRESSING TOWARDS THE PLAN OF CARE. PT ON CPAP TRIAL FOR APPROXIMATELY 1 HOUR TODAY. PATIENT'S , AMI, VISITED IN PERSON AND SPOKE WITH DR. CALLAHAN.
[2021-05-12] VITALS (17 sets, daily range): BP systolic 90–104; BP diastolic 52–71
[2021-05-12 05:16] LABS: HEMATOCRIT 56.1 % (42.0-52.0); HEMOGLOBIN 17.3 gm/dL (14.0-18.0); MCH 28.3 pg (26.0-34.0); MCHC 30.9 g/dL (28.0-37.0); MCV 91.6 fL (80.0-100.0); RBC 6.13 mil/uL (4.50-6.00); WBC 10.5 thou/uL (4.0-11.0)
[2021-05-12 05:34] LABS: ALBUMIN 2.4 g/dL (3.4-5.0); CALCIUM 7.9 mg/dL (8.5-10.1); POTASSIUM 4.2 mmol/L (3.5-5.1)
[2021-05-12 17:05] LABS: ALBUMIN 2.5 g/dL (3.4-5.0); TOTAL BILIRUBIN 2.9 mg/dL (0.2-1.0); TOTAL PROTEIN 5.2 g/dL (6.4-8.2)
--- NOTE | 2021-05-12 17:08 | NUR ---
cm notified by nurse that brought flma paperwork for MD to complete, paperwork placed on chart and will deliver to attending physician.
[2021-05-13] VITALS (21 sets, daily range): BP systolic 85–103; BP diastolic 58–72
[2021-05-13 03:22] LABS: HEMATOCRIT 55.3 % (42.0-52.0); HEMOGLOBIN 16.7 gm/dL (14.0-18.0); MCH 27.5 pg (26.0-34.0); MCHC 30.2 g/dL (28.0-37.0); MCV 91.2 fL (80.0-100.0); RBC 6.06 mil/uL (4.50-6.00); WBC 13.8 thou/uL (4.0-11.0)
[2021-05-13 04:56] LABS: POTASSIUM 4.4 mmol/L (3.5-5.1)
--- NOTE | 2021-05-13 13:50 | NUR ---
CM REVIEWED CHART AND SPOKE WITH NURSE. PT'S CARE DISCUSSED DURING ICU ROUNDS. PT REMAINS ON VENT FIO2 40% PEEP 6. PT WITH FEVER. PULM ORDERED SOME LABS AND INDICATED POSSIBLE INITIATION OF CPAP TRIALS ONCE PT IS WITHOUT FEVER. CM NOTIFIED HOSPITALIST THAT FMLA PAPERWORK HAD BEEN PLACED ON CHART FOR PT'S SPOUSE. NO DC ANTICIPATED. CM FOLLOWING.
--- NOTE | 2021-05-13 18:29 | NUR ---
PT STABLE ON VENT, HEASITANT TO DO WEANING TRIAL DUE TO FEVER. VSS. NO PROGRESSION DUE TO INABILITY TO WEAN OFF VENT. VISITED TODAY, UPDATED AT BESIDE BY NURSE AND WAS UPDATED BY WELL.
[2021-05-14] VITALS (25 sets, daily range): BP systolic 83–101; BP diastolic 54–75
[2021-05-14 05:30] LABS: HEMATOCRIT 52.3 % (42.0-52.0); HEMOGLOBIN 15.9 gm/dL (14.0-18.0); MCH 27.4 pg (26.0-34.0); MCHC 30.3 g/dL (28.0-37.0); MCV 90.5 fL (80.0-100.0); RBC 5.78 mil/uL (4.50-6.00); WBC 10.3 thou/uL (4.0-11.0)
[2021-05-14 05:43] LABS: CALCIUM 8.1 mg/dL (8.5-10.1); CREATININE 0.9 mg/dL (0.7-1.3)
[2021-05-14 15:31] LABS: BE(vivo) 6.2 mmol/L (-2 to +3); HCO3 31.1 mmol/L (22.0-26.0); PCO2 45.3 mmHg (35.0-45.0); PO2 65.3 mmHg (80.0-100.0); pH 7.455 (7.360-7.450); sO2 93.6 % (92.0-98.0)
[2021-05-15] VITALS (41 sets, daily range): BP systolic 71–170; BP diastolic 40–110
[2021-05-15 04:28] LABS: HEMATOCRIT 50.7 % (42.0-52.0); HEMOGLOBIN 15.5 gm/dL (14.0-18.0); MCH 27.5 pg (26.0-34.0); MCHC 30.7 g/dL (28.0-37.0); MCV 89.6 fL (80.0-100.0); RBC 5.65 mil/uL (4.50-6.00); RDW 14.8 % (10.5-14.5); WBC 11.8 thou/uL (4.0-11.0)
[2021-05-15 04:52] LABS: CALCIUM 8.1 mg/dL (8.5-10.1); CREATININE 0.9 mg/dL (0.7-1.3); POTASSIUM 3.5 mmol/L (3.5-5.1)
[2021-05-16] VITALS (25 sets, daily range): BP systolic 85–123; BP diastolic 53–86
[2021-05-16 06:30] LABS: HEMATOCRIT 49.6 % (42.0-52.0); MCH 27.2 pg (26.0-34.0); MCHC 30.3 g/dL (28.0-37.0); RBC 5.52 mil/uL (4.50-6.00); RDW 14.7 % (10.5-14.5); WBC 9.4 thou/uL (4.0-11.0)
[2021-05-16 06:41] LABS: ALBUMIN 2.2 g/dL (3.4-5.0); CALCIUM 7.9 mg/dL (8.5-10.1); CREATININE 0.8 mg/dL (0.7-1.3); PHOSPHORUS 3.4 mg/dL (2.6-4.7); POTASSIUM 3.4 mmol/L (3.5-5.1)
--- NOTE | 2021-05-16 07:24 | NUR ---
Pt. on 14L/HF at beginning of shift the RT placed him on BIPAP at HS (50%). O2 sat has been in the mid to upper 90's during the night. He occasionally disconnects BIPAP. He has been reoriented and redirected. Oriented to person only and follows simple commands. Amiodarone gtt decreases to 0.5 mg/min at HS. Remains in afib then afib RVR from 120's-150's. SUPERVISOR MAINTENANCE notified and cardizem 10 mg IV bolus given x1 which eventually controlled HR down in the 90's to low 100's . He has been repositioned. Max temp of 99.5 axillary this am. Complete bed bath given. Z guard applied to buttocks. Kept NPO per order. Oral care given. Making some progress towards care plan goals.
--- NOTE | 2021-05-16 09:16 | NUR ---
ASSUMED CARE OF PT AT 0700 PT IS PLEASANT BUT CONFUSED, ORIENTED ONLY TO SELF, HOWEVER HE DOES FOLLOW COMMANDS
--- NOTE | 2021-05-16 14:53 | NUR ---
Discussed during los via phone call with the attending physician. extubated on 8th over the weekend. cont. to require use of high flow and bipap 50% FIO2 Will cont following as needed for dc needs.
[2021-05-17] VITALS (27 sets, daily range): BP systolic 85–113; BP diastolic 54–81
--- NOTE | 2021-05-17 15:36 | NUR ---
Discussed during unit rounds and with the attending physician. Cont to requirer bipap. Amio gtt. Hematology consult. Cm spoke with kylah, no concerns or needs voiced. Kylah got the completed la paperwork completed last week.
[2021-05-18] VITALS (35 sets, daily range): BP systolic 86–148; BP diastolic 59–90
[2021-05-18 05:18] LABS: HEMATOCRIT 46.6 % (42.0-52.0); HEMOGLOBIN 14.3 gm/dL (14.0-18.0); MCH 27.4 pg (26.0-34.0); MCHC 30.7 g/dL (28.0-37.0); MCV 89.4 fL (80.0-100.0); RBC 5.22 mil/uL (4.50-6.00); WBC 6.4 thou/uL (4.0-11.0)
--- NOTE | 2021-05-18 06:19 | NUR ---
Pt is still incoherent, and requires o2 suport for saturation. pt is slowly progressing towards plan of care
[2021-05-18 06:26] LABS: CALCIUM 7.8 mg/dL (8.5-10.1); CREATININE 0.7 mg/dL (0.7-1.3); POTASSIUM 3.8 mmol/L (3.5-5.1); TOTAL BILIRUBIN 1.4 mg/dL (0.2-1.0); TOTAL PROTEIN 4.8 g/dL (6.4-8.2)
--- NOTE | 2021-05-18 13:28 | NUR ---
PT WAS CHANGED FROM IV AMIODARONE TO PO AMIODARONE. PT HEART RATE ELEVATED TO 150'S. ELIA BECKER AND DR. HERNÁNDEZ WAS PAGED. DR HERNÁNDEZ CAME AND SAW THE PATIENT. ORDERED DILTIAZEM IV PUSH AND GTT.
[2021-05-19] VITALS (32 sets, daily range): BP systolic 101–155; BP diastolic 52–99
[2021-05-19 05:22] LABS: ALBUMIN 2.2 g/dL (3.4-5.0); CALCIUM 7.5 mg/dL (8.5-10.1); CREATININE 0.7 mg/dL (0.7-1.3); MAGNESIUM 1.8 mg/dL (1.8-2.4); POTASSIUM 3.4 mmol/L (3.5-5.1); TOTAL BILIRUBIN 1.6 mg/dL (0.2-1.0); TOTAL PROTEIN 5.1 g/dL (6.4-8.2)
[2021-05-19 05:25] LABS: HEMATOCRIT 45.9 % (42.0-52.0); HEMOGLOBIN 14.5 gm/dL (14.0-18.0); MCH 27.6 pg (26.0-34.0); MCHC 31.5 g/dL (28.0-37.0); MCV 87.7 fL (80.0-100.0); RBC 5.23 mil/uL (4.50-6.00); RDW 14.7 % (10.5-14.5); WBC 12.5 thou/uL (4.0-11.0)
--- NOTE | 2021-05-19 07:24 | NUR ---
pt is slowly progressing towards plan of care. pt received prn metoprolol during shift for tachycardia
--- NOTE | 2021-05-19 10:36 | NUR ---
WOUND CONSULT; THE PATIENTS SCROTUM WAS ASSESSED AND ERYTHEMA WITH TENDERNESS WAS NOTED. THE RIGHT LATERAL LE WAS ASSESSED WELL AND EDEMA IS PRESENT WITH A SMALL WOUND. THE PATIENT COULD HAVE BENIFIT TO SOME COMPRESSION BUT IT IS IMPOSSIBLE DUE TO HIS BREATHING ISSUES. RECOMMENDATIONS: -TURN Q2H. -APPLY ANTIFUNGAL BARRIER TO SCROTUM DAILY/PRN. -APPLY A BORDERED FOAM TO THE RIGHT LAT LE, CHANGE DAILY/PRN DISCUSSED WITH RN.
[2021-05-19 16:09] LABS: URINE BILIRUBIN NEGATIVE (Negative); URINE BLOOD 3+ (Negative); URINE CLARITY CLEAR; URINE COLOR YELLOW; URINE GLUCOSE-RANDOM* NEGATIVE (Negative); URINE KETONES NEGATIVE (Negative); URINE LEUKOCYTES-REFLEX NEGATIVE (Negative); URINE NITRITE-REFLEX NEGATIVE (Negative); URINE PROTEIN (DIPSTICK) NEGATIVE (Negative); URINE SPECIFIC GRAVITY 1.015 (1.005-1.035)
[2021-05-19 16:25] LABS: HYALINE CASTS 0-3 Few /LPF (None Seen); SQUAMOUS 4-10 Moderate /LPF (0-3)
[2021-05-19 16:26] LABS: MUCUS 4-6 Moderate strn/LPF (None Seen); URINE WBC-REFLEX 0-5 Rare /HPF (0-5)
[2021-05-19 16:27] LABS: CRYSTALS None Seen /LPF (None Seen); WBC CASTS 0-3 Few /LPF (None Seen)
--- NOTE | 2021-05-19 18:32 | NUR ---
Pt still on diltiazem gtt at 20mg/hr with Q4PRN metoprolol pushes with HR still 110's -160's, cards on case ordered lasix 40 meq x1. Pt had 2100 ml out but 1800 ml in, two doses of 20 meq IV K given. Pt was on BiPAP for 5-6 hours this shift. Pt had 3 stools this shift.
--- NOTE | 2021-05-19 21:37 | NUR ---
PT AWAKE AT BEGINNING OF SHIFT. SPEECH MUMBLED, PT HAS GOOD EYE CONTACT, SMILING LAUGHING. PT REMAINS CONFUSED. O2 PER NC. BIPAP AT HS. LUNGS WHEEZES AND COARSE. BUE AND BLE EDEMA,SCROTUM EDEMA. BS DECREASED. INCONTINENT OF STOOL. MONTERO TO DD, DARK LUIS URINE. LABS AND CXR COMPLETED. CARDIZEM AND IVF INTACT. PRN IV LOPRESSOR GIVEN SINCE HR REMAINS >120. DIET PURRED HONEY THICK LIQUIDS, MEDS IN PUDDING. BED ALARM ON.
[2021-05-20] VITALS (25 sets, daily range): BP systolic 112–145; BP diastolic 66–97
[2021-05-20 05:36] LABS: HEMATOCRIT 45.8 % (42.0-52.0); HEMOGLOBIN 14.3 gm/dL (14.0-18.0); MCH 27.5 pg (26.0-34.0); MCHC 31.2 g/dL (28.0-37.0); MCV 87.9 fL (80.0-100.0); RBC 5.2 mil/uL (4.50-6.00); RDW 15.2 % (10.5-14.5); WBC 13.1 thou/uL (4.0-11.0)
[2021-05-20 06:24] LABS: ALBUMIN 2.4 g/dL (3.4-5.0); CREATININE 0.7 mg/dL (0.7-1.3); MAGNESIUM 1.8 mg/dL (1.8-2.4); POTASSIUM 3.9 mmol/L (3.5-5.1); TOTAL BILIRUBIN 1.3 mg/dL (0.2-1.0); TOTAL PROTEIN 5.4 g/dL (6.4-8.2)
--- NOTE | 2021-05-20 11:54 | NUR ---
Discussed during los with the attending physician. Cont. bipap hs. Requires 6-8L/oxygen. IV abx. Cm visited with him at bedside, A & o to self, pleasant with forgetfulness and confusion. No anticipated dc though the weekend. Will cont. following as needed.
--- NOTE | 2021-05-20 13:44 | NUR ---
PT (AMI) WAS AT BEDSIDE AT 1300, VERY UPSET AND CONFRONTATIONAL IN HER TONE ON ARRIVAL. IS UPSET PT IS NOT PROGRESSING FAST SHE WOULD LIKE FOR HIM TO BE PROGRESSING. SHE IS IN CONTACT WITH [facility] AND POSSIBLY OTHER HOSPITALS ASKING ABOUT TRANSFERRING PATIENT OUT OF IF PATIENT DOES NOT PROGRESS SOON. WILL NOTIFY CASE MANAGEMENT. PT WAS ABLE TO SPEAK TO DR. DIEGO OVER THE PHONE AT 1330, AMI WAS VERY DEMANDING, UPSET AND LOUD IN TONE TOWARDS MEDICAL STAFF. WILL CONTINUE TO FOLLOW POC.
--- NOTE | 2021-05-20 20:27 | NUR ---
ASSUMED CARE OF PT AT 1900. SPOKE TO SISTER SOREN AT 2024. UPDDATED ON PT STATUS AND ANSWERED ALL QUESTIONS. WILL CONTINUE TO FOLLOW POC.
[2021-05-21] VITALS (19 sets, daily range): BP systolic 127–160; BP diastolic 68–85
[2021-05-21 05:01] LABS: HEMATOCRIT 44.2 % (42.0-52.0); HEMOGLOBIN 13.8 gm/dL (14.0-18.0); MCH 27.6 pg (26.0-34.0); MCHC 31.2 g/dL (28.0-37.0); MCV 88.4 fL (80.0-100.0); RDW 15.2 % (10.5-14.5); WBC 9.8 thou/uL (4.0-11.0)
[2021-05-21 05:30] LABS: ALBUMIN 2.1 g/dL (3.4-5.0); CALCIUM 7.5 mg/dL (8.5-10.1); CREATININE 0.6 mg/dL (0.7-1.3); MAGNESIUM 1.8 mg/dL (1.8-2.4); POTASSIUM 3.6 mmol/L (3.5-5.1); TOTAL BILIRUBIN 1.3 mg/dL (0.2-1.0); TOTAL PROTEIN 4.8 g/dL (6.4-8.2)
--- NOTE | 2021-05-21 09:34 | NUR ---
SPOKE WITH DR. DIEGO THIS MORNING REGARDING THIS PATIENT AND HIS INCREASE IN EDEMA AND CHEST CONGESTION. SHE APPROVES OF HOLDING PATIENT D5W FOR 6HRS AND RESTARTING AGAIN AT A RATE OF 80CC/HR. CONSULT ALSO PLACED TO HAVE ORACLE SOA CONSULTANT ASSESS PATIENT NUTRITION NEEDS AND POSSIBLE NEED FOR NG TUBE FEEDINGS. PATIENT COUGHS AND APPEARS TO BE EASILY DISTRACTED DURING CHEWING OR DOES NOT CHEW/SWALLOW FOOD NORMALLY AT THE MOMENT, RN WORRIED ABOUT PATIENT POSSIBLY ASPIRATING IF WE ARE TOO AGGRESSIVE ON ORAL FEEDINGS. WILL CONTINUE TO FOLLOW POC.
[2021-05-22] VITALS (23 sets, daily range): BP systolic 127–169; BP diastolic 75–109
--- NOTE | 2021-05-22 22:54 | NUR ---
DURING SHIFT CHANGE, PATIENT WAS PULLING OFF ALL MONITORS AND OXYGEN. PATIENT REDIRECTED MULTIPLE TIMES AND EDUCATED ON IMPORTANCE OF THESE INTERVENTIONS. PATIENT CONTINUED TO BE IMPULSIVE/RESTLESS. PATIENT ORIENTED TO SELF AND TIME BUT CONFUSED ABOUT PLACE/SITUATION. DAY SHIFT RN NOTIFIED DR. BROWN AND RECEIVED ORDERS FOR RESTRAINTS. NURSING ANTIQUE JEWELRY REPAIRER, JASWINDER LAI, NOTIFIED AND PATIENT PLACED IN RESTRAINTS. PATIENT DID NOT LIKE RESTRAINTS BUT UNDERSTOOD THE PURPOSE. PATIENT'S , AMI, WAS NOTIFIED AND UPDATED ON PATIENT'S CONDITION. PATIENT IS STABLE AND RESTING COMFORTABLY AT THIS TIME.
[2021-05-23] VITALS (10 sets, daily range): BP systolic 120–166; BP diastolic 70–95
--- NOTE | 2021-05-23 04:33 | NUR ---
NURSING NOTE: PT ARRIVED TO CCU @ 0330 TODAY. ALERT TO SELF ONLY. DOES FOLLOW COMMANDS. BILATERAL WRIST RESTRAINTS IN PLACE/PT TOLERATING WITHOUT DISTRESS. ALL VS AND ASSESSMENTS CHARTED. CURRENTLY RESTING WITH EYES CLOSED, RESP EVEN AND NON LABORED. WILL CONTINUE TO MONITOR.
[2021-05-23 04:50] LABS: HEMATOCRIT 45.8 % (42.0-52.0); HEMOGLOBIN 14.4 gm/dL (14.0-18.0); MCH 27.5 pg (26.0-34.0); MCHC 31.3 g/dL (28.0-37.0); MCV 87.9 fL (80.0-100.0); RBC 5.21 mil/uL (4.50-6.00); RDW 15.8 % (10.5-14.5); WBC 10.3 thou/uL (4.0-11.0)
[2021-05-23 05:00] LABS: CALCIUM 7.8 mg/dL (8.5-10.1); CREATININE 0.6 mg/dL (0.7-1.3); POTASSIUM 3.1 mmol/L (3.5-5.1)
--- NOTE | 2021-05-23 11:08 | NUR ---
WOUND CARE F/U: THE RIGHT LAT LE WOUND WAS ASSESSED AND SHOWS IMPROVEMENT AND NO S/S OF INFECTION. THE SCOTUM IS IMPROVED AND HAS NO ERYTHEMA OR PAIN. RECOMMENDATIONS: CONTINUE CURRENT WOUND PLAN OF CARE. DISCUSSED WITH RN.
--- NOTE | 2021-05-23 14:06 | NUR ---
CM MET WITH PT THIS DAY. PTS AMI AT PTS BEDSIDE. PT RESTING WITH EYES CLOSED. PT DID OPEN HIS EYES BUT DID NOT RESPOND TO QUESTIONS. PTS VOICED PTS GOAL FOR DISCHARGE IS TO GO BACK HOME. 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 THIS CM DISCUSSED SNF AND HH OPTIONS. PRINTED CHOICES GIVEN TO PTS FOR SNF AND HH. PT RECOMMENDING SNF ON DC. ANSWERED QUESTIONS PTS ASKED RE [facility]. WILL CONTINUE TO ASSESS AND FOLLOW THERAPY RECOMMENDATIONS. THIS CM WILL F/U WITH PT AND PTS FOR SNF OR HH CHOICE ONCE MEDICALLY STABLE TO DC. CM FOLLOWING.
--- NOTE | 2021-05-23 15:02 | NUR ---
SPOKE WITH PATIENTS' SISTER FROM [place] AND GAVE UPDATE.
--- NOTE | 2021-05-23 15:33 | NUR ---
ASSUMED CARE OF PATIENT AT 0700. PATIENT TRANSFER FROM ICU THAT WAS SLEEPING THIS MORNING IN ROOM WITH RESTRAINTS ON. PER DR. BROWN RESTRAINTS WERE REMOVED AT APPX 0945. PATIENT ALERT WHILE AT BEDSIDE AND HAS GOOD APPETITE. SPPECH WENT TO TRY TO REEVELUATE PATIENTS' SWALLOW BUT PATIENT WAS SLEEPING AND SPEECH WILL TRY AGAIN TOMORROW. PATIENT HAD K+ OF 3.1 WHICH WAS REPLACED WITH ONE BAG OF KCL AND REDRAW CAME BACK AT 3.6. NO INSULIN NEEDS AT THIS TIME. MONTERO REMAINS IN PLACE, PATENT, WITH GOOD OUTPUT. PATIENT PROGRESSING TOWARD POC.
[2021-05-24 03:24] VITALS: BP 149/93
--- NOTE | 2021-05-24 05:23 | NUR ---
ASSESSMENT CHARTED, FLUIDS INFUSING, VSS, NO C/O PAIN, WILL CON'T TO MONITOR PER PPOC.
[2021-05-24 09:26] VITALS: BP 137/82
[2021-05-24 12:06] VITALS: BP 129/81
--- NOTE | 2021-05-24 13:56 | NUR ---
CM ATTEMPT TO MEET WITH PT THIS DAY. PT ON 3L/NC DOWN FROM 4L/NC YESTERDAY. PT RESTING WITH EYES CLOSED. DID BRIEFLY OPEN HIS EYES BUT CLOSED AGAIN. CM ALSO ATTEMPT TO CALL PTS AMI TO INQUIRE IF SHE HAD CHOSEN A SNF FACILITY ONCE PT IS MEDICALLY STABLE TO DC. UNABLE TO REACH AND LEFT MESSAGE FOR RETURN CALL. CM WILL CONTINUE TO FOLLOW.
--- NOTE | 2021-05-24 15:54 | NUR ---
PTS SPOUSE AMI RETURNED CM CALL. SPENT SOME EDCUATING ON SNF SERVICES. CHOICE FOR SNF SERVICE [facility]. PTS REPORTS BECAUSE IT IS [address] AND CLOSE TO BE BELIEVES IT IS THE RIGHT CHOICE. REFERRAL SENT. CM WILL CONTINUE TO FOLLOW FOR DC PLANNING.
[2021-05-24 16:53] VITALS: BP 119/68
[2021-05-24 19:00] VITALS: BP 129/81
--- NOTE | 2021-05-24 19:14 | NUR ---
PATIENT ATE WELL TODAY. HE WAS ENCOURAGED A LOT TO DO THIS. PACHECO IS RESTING IN BED WITH CALL CUEVAS IN REACH.
[2021-05-25 03:39] VITALS: BP 116/55
--- NOTE | 2021-05-25 04:05 | NUR ---
alert and oriented to self and sometimes place, confused, denies pain or sob, on 4l nc o2sats stable, asessments as charted, fluids infusing as per orders, meds given per mar, adequate u/o from merrill, no acute distress noted this shift, progressing slowly towards poc
[2021-05-25 07:30] VITALS: BP 130/77
[2021-05-25 09:30] LABS: CALCIUM 8.5 mg/dL (8.5-10.1); CREATININE 0.8 mg/dL (0.7-1.3); POTASSIUM 3.4 mmol/L (3.5-5.1)
[2021-05-25 10:58] LABS: PCO2 51.6 mmHg (35.0-45.0); PO2 59.9 mmHg (80.0-100.0); pH 7.461 (7.360-7.450); sO2 91.9 % (92.0-98.0)
[2021-05-25 11:00] VITALS: BP 138/86
--- NOTE | 2021-05-25 13:48 | NUR ---
REFERRAL HAD BEEN SENT TO [facility] YESTERDAY PER PT'S SPOUSE REQUEST. CM FOLLOWED UP WITH [facility] THIS AM AND THEY HAD GOTTEN IT AND WERE PLANNING TO DO AN ONSITE EVAL THIS DAY. CARE TEAM INDICATED THAT THEY WERE GOING TO CHECK PT'S PCO2 AND THAT PT MAY NEED BIPAP. CARMELO VISITED AND INDICATED THEY WERE GOIGN TO FOLLOW. SHE INDICATED THEY WANTED UPDATED THERAPY NOTES TOMORROW. CM TO SEND. IT IS ANTICPATED THAT PT MAY BE DC READY BY SUNDAY. CM FOLLOWING.
[2021-05-25 16:30] VITALS: BP 122/85
--- NOTE | 2021-05-25 18:12 | NUR ---
PT IS AXOX2-3; KNOWS SELF, SITUATION, PLACE; L PUPIL 2MM, R PUPIL 8MM. VSS, AFEBRILE, SR ON THE MONITOR. PT ON 4LNC: STATES HE HAS THIS AT HOME, BUT PT UNABLE TO VERBALIZE HIS HOME O2 NEEDS. DR CURTIS CONSULTED, PULMONARY CONSULTED, CASE MGMT CONSULTED. POC IS TO CONTINUE WITH PT/OT TO PROGRESS PT TOWARDS GOALS OF D/C TO [facility] WITH REHAB. [facility]GN[facility] REP HAS SPOKEN TO . WILL CONTINUE TO MONITOR O2 SAT WITH ACTIVITY. FALL PRECAUTIONS IN PLACE, FREQUENT ROUNDING.
[2021-05-25 18:40] VITALS: BP 134/51
[2021-05-25 19:41] VITALS: BP 123/79
[2021-05-26 07:32] VITALS: BP 142/87
[2021-05-26 08:00] VITALS: BP 123/86
--- NOTE | 2021-05-26 10:31 | NUR ---
Paged RT to place BIPAP machine on pt as requested by Dr. Bradford.
[2021-05-26 11:45] VITALS: BP 123/86
[2021-05-26 15:15] VITALS: BP 104/73
--- NOTE | 2021-05-26 16:27 | NUR ---
CHART REVIEWED AND DISCUSSED WITH CARE TEAM. CM SENT THERAPY AND RESTRAINT UPDATES TO [facility]. PT HAS NOT BEEN RESTRAINED SINCE 05-23-21. RECEIVED CONFIRMATION FACILITY RECEIVED UPDATES. [facility] INFORMED THIS CM BEFORE THEY CAN ACCEPT THEY NEED A MORE SOLID DC PLAN FROM SNF TO HOME. [facility] HAS BEEN UNSUCCESSLY TRYING TO REACH AMI PTS TO FINALIZE REFERRAL AND PROVIDE FURTHER CLARIFICATION FOR ACCEPTANCE. CM ALSO CALLED PT. NO ANSWER BUT CM LEFT A MESSAGE. CM WILL CONTINUE TO FOLLOW FOR DC PLANNING.
[2021-05-26 17:35] LABS: ABSOLUTE NEUTROPHILS 8.1 thou/uL (1.4-8.2); BASOPHILS 0.1 % (0.0-2.0); HEMATOCRIT 54.1 % (42.0-52.0); HEMOGLOBIN 16.5 gm/dL (14.0-18.0); LYMPHOCYTES 6.4 % (24.0-44.0); MCH 27.6 pg (26.0-34.0); MCHC 30.5 g/dL (28.0-37.0); MCV 90.4 fL (80.0-100.0); MONOCYTES 2.9 % (1.0-8.0); PLATELET COUNT 143 thou/uL (150-400); POLYS 90.6 % (36.0-66.0); RBC 5.99 mil/uL (4.50-6.00); RDW 16.1 % (10.5-14.5)
--- NOTE | 2021-05-26 18:51 | NUR ---
Pt has been alert to self, VS stable and afebrile. Pt has been on BIPAP throughout shift except for during meals. After use of BIPAP pt is more alert. Pt has poor appetite and has been refusing meals even with encouragement. was at bedside and wants to advance pts diet - was educated on pt's needs and limitations. Home O2 confirmed to be 4L NC. No current concerns. Continue to monitor.
[2021-05-26 19:07] VITALS: BP 129/88
[2021-05-26 19:35] LABS: URINE BILIRUBIN NEGATIVE (Negative); URINE BLOOD 1+ (Negative); URINE CLARITY SL CLOUDY; URINE COLOR YELLOW; URINE GLUCOSE-RANDOM* NEGATIVE (Negative); URINE KETONES NEGATIVE (Negative); URINE NITRITE-REFLEX NEGATIVE (Negative); URINE PROTEIN (DIPSTICK) NEGATIVE (Negative)
[2021-05-26 19:38] LABS: URINE LEUKOCYTES-REFLEX 2+ (Negative)
[2021-05-26 19:47] LABS: SQUAMOUS 0-3 Few /LPF (0-3)
[2021-05-26 19:48] LABS: CASTS None Seen /LPF (None Seen); CRYSTALS None Seen /LPF (None Seen); URINE RBC 1-2 Rare /HPF (NONE SEEN); URINE WBC-REFLEX 0-5 Rare /HPF (0-5)
[2021-05-27 04:40] LABS: ALBUMIN 2.8 g/dL (3.4-5.0); CALCIUM 8.3 mg/dL (8.5-10.1); CREATININE 0.7 mg/dL (0.7-1.3)
[2021-05-27 05:18] VITALS: BP 135/93
[2021-05-27 07:00] VITALS: BP 141/91
[2021-05-27 08:26] LABS: BE(vivo) 5.3 mmol/L (-2 to +3); HCO3 30.9 mmol/L (22.0-26.0); PCO2 47.9 mmHg (35.0-45.0); PO2 182.5 mmHg (80.0-100.0); pH 7.428 (7.360-7.450); sO2 99.3 % (92.0-98.0)
[2021-05-27 11:30] VITALS: BP 116/75
--- NOTE | 2021-05-27 13:58 | NUR ---
CM MET WITH PT AND PTS AMI AT BEDSIDE. 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 GOAL IS FOR PATIENT TO GET STRONGER WILL SKILLED SERVICES AND PT IS STRONG ENOUGH TO BE HOME ALONE WHILE AT WORK. AWAITING ACCEPTANCE FROM [facility] AT THIS TIME. FACILITY [facility] IS ATTEMPTING TO VISIT WITH PTS TO CLARIFY DC PLANS ONCE STABLE TO DC FROM SNF. AMI MADE AWARE SEVERAL TIMES THEY ARE TRYING TO REACH HER. CM CLARIFIED PTS CELL AND FORWARDED TO [facility]. CM WILL CONINTUE TO FOLLOW FOR DC PLANNING.
[2021-05-27 15:00] VITALS: BP 105/68
--- NOTE | 2021-05-27 19:56 | NUR ---
Pt has been A&0x3, VS stable and afebrile. At start of shift pt was lethargic and could only be woken up with sternal rub. Pt was placed back on BIPAP and setting was increased from 40% to 80%. ABG was drawn and C02 and pH are trending down towards normal range. Head, Chest and Abdomen CT were ordered. At 1100 pt woke up and was alert, talkative and hungry. Pt was taken off BIPAP and placed on 13L high flow 02. RT titrated O2 down to 9L. ST advanced diet to mechanical chopped with honey thickened liquids. No current concerns. Continue to monitor.
[2021-05-27 20:15] VITALS: BP 122/74
[2021-05-27 21:06] LABS: SYPHILIS AB Non Reactive (Non Reactive)
[2021-05-28 03:56] LABS: ALBUMIN 2.6 g/dL (3.4-5.0); CALCIUM 8.4 mg/dL (8.5-10.1); CREATININE 0.7 mg/dL (0.7-1.3); PHOSPHORUS 3.2 mg/dL (2.5-4.9); POTASSIUM 3.1 mmol/L (3.5-5.1)
[2021-05-28 03:58] LABS: HEMATOCRIT 49.1 % (42.0-52.0); HEMOGLOBIN 15.6 gm/dL (14.0-18.0); MCH 27.6 pg (26.0-34.0); MCHC 31.8 g/dL (28.0-37.0); MCV 86.8 fL (80.0-100.0); RBC 5.66 mil/uL (4.50-6.00); RDW 15.6 % (10.5-14.5); WBC 8.9 thou/uL (4.0-11.0)
--- NOTE | 2021-05-28 04:49 | NUR ---
RECEIVED CARE OF THIS PATIENT AROUND 0030. PATIENT ALERT AND ORIENTED [place], PLACE AND TIME. IV PATENT WITH FLUIDS INFUSING. MONTERO PATENT. O AT 9L/NC. REMAINS ON BEDREST. HAS MARTA PROFA BOOTS ON. DENIES PAIN. SLEPT MOST OF NIGHT.
[2021-05-28 07:39] VITALS: BP 131/80
[2021-05-28 11:45] VITALS: BP 123/75
[2021-05-28 15:02] VITALS: BP 134/82
--- NOTE | 2021-05-28 17:39 | NUR ---
ASSUMED PT CARE THIS MORNING. PT IRRITABLE AND STATES THEY WOULD LIKE TO LEAVE. PT NEEDED TO BE FREQUENTLY REMINDED TO KEEP OXYGEN ON AND NOT PULL ON THEIR MONTERO. PT HAD SOME BACK PAIN THIS AFTERNOON THAT WAS RESOLVED WITH PO TYLENOL. CONSUMED A GOOD AMOUNT OF EACH MEAL. MEDICATION WAS CRUSHED AND MIXED WITH APPLESAUCE.
[2021-05-28 19:28] VITALS: BP 147/79
[2021-05-29 04:16] VITALS: BP 142/98
[2021-05-29 07:59] VITALS: BP 131/90
[2021-05-29 11:40] VITALS: BP 136/87
[2021-05-29 15:38] VITALS: BP 138/81
--- NOTE | 2021-05-29 16:54 | NUR ---
ASSUMED PT CARE THIS MORNING PT A&OX1 (SELF). PT DENIED PAIN THROUGHOUT THE SHIFT AND WAS FREQUENTLY REPOSITIONED TO AID IN COMFORT. PT VOIDED WITH A MONTERO AND HAD LUIS COLOR URINE, NO BM THIS SHIFT. PT NEEDED ENCOURAGEMENT TO CONSUME MEALS, STAY IN THE BED, AND NOT PULL AT THE MONTERO. PT WAS SOMNOLENT BUT THIS SHIFT. VITAL SIGNS WERE STABLE. PROVIDER WAS NOTIFIED, NO NEW ORDERS OBTAINED.
[2021-05-29 19:58] VITALS: BP 111/65
[2021-05-30 04:00] VITALS: BP 125/98
--- NOTE | 2021-05-30 05:17 | NUR ---
assumed pt care at 1900, orientedx2-3, tyl given for headache with relief, sr on tele, slept with BIPAP on tolerated well, on 2L while awake, assessments as charted, no distress noted, will continue to monitor per poc
[2021-05-30 06:06] LABS: HIV ANTIBODY Non Reactive (Non Reactive)
[2021-05-30 07:20] VITALS: BP 124/72
--- NOTE | 2021-05-30 10:40 | NUR ---
WOUND CARE F/U; THE RIGHT LATERAL LEG WOUND IS HEALED TODAY. I APPLIED BARRIER CREAM WITH MULTIPLE LAYERS TO PROTECT THE AREA. THE SCOTUM HAS IMPROVED WITH INTERDRY USE. RECOMMENDATIONS; I WILL SIGN OFF AT THIS TIME. PLEASE RECONSULT IF NEEDED.
[2021-05-30 11:15] VITALS: BP 131/82
--- NOTE | 2021-05-30 13:32 | NUR ---
CHART REVIEWED AND DISCUSSED WITH CARE TEAM. CM SPOKE TO [facility] TO CONFIRM PT ACCEPTANCE AND TO CHECK ON BED AVAILABILITY. WAS INFORMED PT IS ACCEPTED AND WOULD NEED TO KNOW BY NOON IF PT WAS TO DISCHARGE. PT NOT MEICALLY STABLE TO DISCHARGE AT THIS TIME. CLINICAL UPDATES FAXED TO [facility]. CM WILL CONTINUE TO FOLLOW FOR DC PLANNING.
[2021-05-30 15:00] VITALS: BP 117/65
[2021-05-30 19:53] VITALS: BP 131/79
--- NOTE | 2021-05-31 00:28 | NUR ---
ASSESSMENTS CHARTED, MEDS CHARTED GIVEN. PATIENT RESTING IN BED DURING SHIFT. PASSING FLATUS AT SHIFT CHANGE. CHANGED FROM NASAL CANULA AT 2 LITERS TO 40% BIPAP AT NIGHT. SLEEPING THROUGH MOST OF SHIFT. CONTINUATION OF CARE.
[2021-05-31 04:22] VITALS: BP 100/62
--- NOTE | 2021-05-31 06:09 | NUR ---
ASSESSMENTS CHARTED, MEDS CHARTED GIVEN. PATIENT RESTING IN BED DURING SHIFT. ON MAINTENANCE FLUIDS DURING SHIFT. ON 2 LITERS WHILE AWAKE, ON PIPAP AT 40% WHILE ASLEEP. DENIED PAIN. APPLIED CREAM TO LOWER LEGS. CONTINUE CARES DIRECTED.
[2021-05-31 07:50] VITALS: BP 135/78
[2021-05-31] MEDS ORDERED: PACERONE 200 M200 M1 PO (09:00)
[2021-05-31] MEDS ORDERED: LEVOFLOXACIN500 MG PO (09:00)
[2021-05-31] MEDS ORDERED: CARDIZEM CD120 MG PO (09:01)
[2021-05-31] MEDS ORDERED: PREDNISONE 20 M20 M1 PO (09:02)
[2021-05-31] MEDS ORDERED: LANTUS SUBQ (09:05)
[2021-05-31] MEDS ORDERED: HUMALOG100 UNIT/1 SUBQ (09:05)
[2021-05-31 11:10] VITALS: BP 110/70
--- NOTE | 2021-05-31 11:18 | NUR ---
PT MEDICALLY STABLE TO DC THIS DAY. CM CONFIRMED BED AVAILABILITY WITH [facility] WHO SET UP TRANSPORT FOR 1300 VIA STRETCHER. CHART COPIED. CM LEFT MESSAGE ON PTS CELL. DC ORDERS AND SUMMARY FAXED TO [facility] ALONG WITH [id number]. ALL PARTIES AWARE. NO FURTHER CM INTERVENTIONS INIDICATED.
--- NOTE | 2021-05-31 12:11 | NUR ---
ASSUMED CARE OF PATIENT AT 0700. PATIENT REMAINS CONFUSED BUT IS EASILY DIRECTABLE. PATIENT REFUSED TO WORK WITH SPEECH THIS MORNING, WILL REMAIN ON CURRENT DIET WITH HONEY THICKEN LIQUIDS. PATIENT DC'ING TO IGNITE AT APPX 1300. IV AND MONTERO BOTH REMOVED. NOTIFIED OF DC. PATIENT PROGRESSED TOWARD POC.
== END 2021-05-31 15:00 | DRG 870 ==
LOC: ER 11:41 → ICU 13:56 → EROBS 13:56 → ICU 16:17 → 2N 05-23 03:49
PROVIDERS: Emergency Medicine; Internal Medicine; Internal Medicine Pulmonary Disease; Nurse Practitioner; Pediatrics; Specialist; ADMIT Hospitalist; ATTEND Hospitalist
DX: A41.9 Sepsis, unspecified organism (principal); J18.9 Pneumonia, unspecified organism; J80 Acute respiratory distress syndrome; G92.8 Other toxic encephalopathy; N39.0 Urinary tract infection, site not specified; E66.2 Morbid (severe) obesity with alveolar hypoventilation; I42.9 Cardiomyopathy, unspecified; J44.0 Chronic obstructive pulmonary disease with (acute) lower respiratory infection; E87.0 Hyperosmolality and hypernatremia; I48.92 Unspecified atrial flutter; I50.30 Unspecified diastolic (congestive) heart failure; J44.1 Chronic obstructive pulmonary disease with (acute) exacerbation; E46 Unspecified protein-calorie malnutrition; Z20.822 Contact with and (suspected) exposure to COVID-19; Z96.612 Presence of left artificial shoulder joint; I27.20 Pulmonary hypertension, unspecified; K74.60 Unspecified cirrhosis of liver; Z96.652 Presence of left artificial knee joint; D69.6 Thrombocytopenia, unspecified; D75.1 Secondary polycythemia; G89.4 Chronic pain syndrome; R65.20 Severe sepsis without septic shock; R41.0 Disorientation, unspecified; I11.0 Hypertensive heart disease with heart failure; E11.65 Type 2 diabetes mellitus with hyperglycemia; I48.0 Paroxysmal atrial fibrillation; L30.8 Other specified dermatitis; B96.1 Klebsiella pneumoniae [K. pneumoniae] as the cause of diseases classified elsewhere; Z83.3 Family history of diabetes mellitus; Z82.49 Family history of ischemic heart disease and other diseases of the circulatory system; Z87.891 Personal history of nicotine dependence; Z68.34 Body mass index [BMI] 34.0-34.9, adult; Z91.19 Patient's noncompliance with other medical treatment and regimen
CPT/HCPCS: 10078; 10081; 10203